=== PATIENT | male | born 1995 | race Caucasian/White ===

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

== ENCOUNTER 2017-01-01 13:03 | Emergency (ER) | payer SELFPAY ==
[~2017-01-01] VITALS: Ht 185.4 cm; Wt 72.7 kg
[2017-01-01 15:03] VITALS: BP 137/61; PULSE 54; TEMP 98.5
== END 2017-01-01 14:30 | disposition home or self-care (01) ==
LOC: COL.ER 13:03
DX: J98.01 Acute bronchospasm (principal); J06.9 Acute upper respiratory infection, unspecified; Z98.890 Other specified postprocedural states
CPT/HCPCS: J8540

== ENCOUNTER 2017-02-01 12:47 | Emergency (ER) | payer SELFPAY ==
[~2017-02-01] VITALS: Ht 185.4 cm; Wt 72.7 kg
[2017-02-01 12:49] VITALS: BP 135/60; TEMP 97.6
[2017-02-01 14:32] VITALS: PULSE 55
== END 2017-02-01 14:35 | disposition home or self-care (01) ==
LOC: COL.ER 12:47
DX: H61.21 Impacted cerumen, right ear (principal); F17.210 Nicotine dependence, cigarettes, uncomplicated; Z90.89 Acquired absence of other organs

== ENCOUNTER 2017-03-17 17:58 | Emergency (ER) | payer SELFPAY ==
[~2017-03-17] VITALS: Ht 188 cm; Wt 72.7 kg
[2017-03-17 18:03] VITALS: TEMP 98.7
[2017-03-17 21:10] VITALS: BP 122/83; PULSE 56
== END 2017-03-17 21:16 | disposition home or self-care (01) ==
LOC: COL.ER 17:58
DX: S62.305A Unspecified fracture of fourth metacarpal bone, left hand, initial encounter for closed fracture (principal); S62.307A Unspecified fracture of fifth metacarpal bone, left hand, initial encounter for closed fracture; F17.210 Nicotine dependence, cigarettes, uncomplicated; W18.39XA Other fall on same level, initial encounter; Y93.67 Activity, basketball; Y92.009 Unspecified place in unspecified non-institutional (private) residence as the place of occurrence of the external cause

== ENCOUNTER 2017-03-19 10:28 | Day surgery (SDC) | payer SELFPAY ==
[~2017-03-19] VITALS: Ht 185.4 cm; Wt 76.8 kg
[2017-03-19 10:59] VITALS: BP 134/52; PULSE 56; TEMP 97.6
[2017-03-19 16:05] VITALS: BP 111/58; PULSE 63; TEMP 97.4
[2017-03-19 16:20] VITALS: BP 119/72; PULSE 60
[2017-03-19] MEDS ORDERED: NORCO 325 MG-7.1 TAB PO (16:32)
[2017-03-19] MEDS ORDERED: OXY IR5 MG PO (16:33)
[2017-03-19 16:35] VITALS: BP 122/69; PULSE 49
== END 2017-03-19 17:00 | disposition home or self-care (01) ==
LOC: SDCO 10:28
DX: S62.315A Displaced fracture of base of fourth metacarpal bone, left hand, initial encounter for closed fracture (principal); S62.317A Displaced fracture of base of fifth metacarpal bone, left hand, initial encounter for closed fracture; F17.210 Nicotine dependence, cigarettes, uncomplicated; Z90.49 Acquired absence of other specified parts of digestive tract
CPT/HCPCS: A4565; J0690; J2250; J2704; J3010; J7120

== ENCOUNTER 2017-05-14 08:10 | Emergency (ER) | payer SELFPAY ==
[~2017-05-14] VITALS: Ht 188 cm; Wt 72.7 kg
[~2017-05-14 08:10] MED LIST: NORCO 325 MG-7.1 TAB PO; OXY IR5 MG PO
[2017-05-14 08:22] VITALS: TEMP 98.3
[2017-05-14 09:36] VITALS: BP 121/70; PULSE 52
== END 2017-05-14 09:40 | disposition home or self-care (01) ==
LOC: COL.ER 08:10
DX: R07.9 Chest pain, unspecified (principal); F17.210 Nicotine dependence, cigarettes, uncomplicated